=== PATIENT | male | born 1960 | race Caucasian/White ===

== ENCOUNTER → 2022-08-21 | Outpatient (CLI) | payer OTHER, MEDICARE, SELFPAY ==
[2022-08-21 16:14] LABS: Absolute Lymphocyte Count 1.72 X10^3/uL (0.83-4.51); Absolute Neutrophil Count 3.5 X10^3/uL (2.0-7.7); Basophil# 0.03 X10^3/uL; Basophil% 0.5 % (0-1); Eosinophil# 0.13 X10^3/uL; Eosinophils% 2.3 % (0-5); Hematocrit 46.7 % (40-54); Hemoglobin 15.1 g/dL (13.0-16.5); Lymphocyte # 1.72 X10^3/ul (0.83-4.51); Lymphocyte % 30.1 % (19-41); Mean Corp Hgb Conc 32.3 g/dL (32-36); Mean Corpuscular Hgb 31.4 pg (27.0-32.0); Mean Corpuscular Volume 97.1 fL (80-94); Mean Platelet Vol. 9.9 fl (6.2-12.0); Monocyte# 0.32 X10^3/uL; Monocyte% 5.6 % (0-10); NRBC Flagged by Analyzer 0 % (0-5); Neutrophil # 3.49 X10^3/uL (2.7-7.7); Neutrophil % 61.1 % (47-70); Platelet Count 301 K/mm3 (150-450); RBC Distribution Width CV 12.9 % (11.6-14.6); RBC Distribution Width SD 46.4 fl (35.1-43.9); Red Blood Count 4.81 M/mm3 (4.6-6.2); White Blood Count 5.7 K/mm3 (4.4-11.0)
[2022-08-21 16:19] LABS: International Normalized Ratio 1.1; Prothrombin Time (Protime)PT. 13.4 SECONDS (11.7-14.9)
[2022-08-21 16:24] LABS: Erythrocyte Sedimentation Rate 14 mm/hr (0-20)
[2022-08-21 16:55] LABS: ALB/GLOB Ratio 0.9 RATIO (0.9-2.4); AST(SGOT) 25 U/L (15-37); Alanine Aminotransfer ALT/SGPT 38 U/L (16-61); Albumin, Serum 3.6 g/dL (3.2-5.0); Alkaline Phosphatase 137 U/L (45-117); Anion Gap 0 (5-15); BUN 14 mg/dL (7-18); BUN/Creat Ratio 16.6 RATIO (10-20); Bilirubin, Direct 0.23 mg/dL (0.00-0.30); CRP < 2.90 mg/L (0.0-3.0); Calcium,Total 9.5 mg/dL (8.5-10.1); Chloride 109 mmol/L (98-107); Creatinine, Serum 0.84 mg/dL (0.70-1.30); EST Glomerular Filtration Rate 98 mL/min (>60); Est Glom Filt Rate - Afr Amer 119 mL/min (>60); Ferritin 173 ng/mL (26-388); Globulin 4.1 g/dL (2.2-4.2); Glucose 99 mg/dL (74-106); LDH 191 U/L (87-241); Potassium 3.8 mmol/L (3.5-5.1); Protein, Total 7.7 g/dL (6.4-8.2); Sodium Level 137 mmol/L (136-145)
[2022-08-21 17:13] LABS: HIV - WCH Non-Reactive (Nonreactive)
[2022-08-21 17:14] LABS: Hemoglobin A1c 5.2 % (3.8-5.6)
[2022-08-23 14:09] LABS: Anti-Centromere B Ab <0.2 AI (0.0-0.9); Anti-Chromatin <0.2 AI (0.0-0.9); Anti-Jo <0.2 AI (0.0-0.9); Anti-Scleroderma-70 AB <0.2 AI (0.0-0.9); RNP Ab 0.4 AI (0.0-0.9); SJOGREN'S Anti-SS-A test < 0.2 AI (0.0-0.9); SJOGREN'S Anti-SS-B test < 0.2 AI (0.0-0.9); Smith Ab <0.2 AI (0.0-0.9)
[2022-08-23 21:08] LABS: Anti-Mitochondrial AB <20.0 Units (0.0-20.0); Anti-dsDNA Ab <1 IU/mL (0-9)
[2022-08-24 00:06] LABS: Angiotensin Convert Enzyme 38 U/L (14-82); Ceruloplasmin 24.4 mg/dL (16.0-31.0); Cytoplasmic Ab (C-ANCA) <1:20 titer (Neg:<1:20); HEPATITIS B SURFACE AG Negative (Negative); Hep C Antibodies Non Reactive (Non Reactive); Hepatitis A IgM Antibody Negative (Negative); Hepatitis B Core AB IgM Negative (Negative)
[2022-08-24 10:47] LABS: AFP, Tumor Marker < 1.8 ng/mL (0.0-8.4); Anti-Smooth Muscle ABS 10 Units (0-19); Copper, Serum or Plasma 106 ug/dL (69-132); Haptoglobin 128 mg/dL (32-363); Perinuclear Ab (P-ANCA) <1:20 titer (Neg:<1:20)
== END | disposition home or self-care (01) ==
LOC: LAB 15:43
PROVIDERS: PCP Family Medicine; Referring Provider Nurse Practitioner Adult Health; Visit Provider Nurse Practitioner Adult Health
DX: E80.6 Other disorders of bilirubin metabolism (principal); K76.0 Fatty (change of) liver, not elsewhere classified
CPT/HCPCS: 36415; 80053; 80074; 82105; 82140; 82164; 82248; 82390; 82525; 82728; 83010; 83036; 83516; 83615; 85025; 85610; 85652; 86140; 86225; 86235; 86256; 86703

== ENCOUNTER → 2022-08-30 | Outpatient (CLI) | payer OTHER, MEDICARE, SELFPAY ==
--- NOTE | 2022-08-30 07:59 | US_ITS ---
STUDY: ABDOMINAL ULTRASOUND - RIGHT UPPER QUADRANT REASON FOR VISIT: Male, 62 years old fatty liver -- limited TECHNIQUE: Ultrasound evaluation of the right upper quadrant was performed with real-time and static baker-scale imaging. TECHNICAL QUALITY: Adequate. COMPARISON: None. FINDINGS: Liver: The liver measures 16.6 cm. There is increased echogenicity consistent with fatty infiltration. The bile ducts are within normal limits. There is hepatic color flow. The direction of portal flow is hepatopetal. There is no demonstrated mass lesion. Gallbladder: Normal distended gallbladder. The gallbladder wall measures 1.9 mm. There is a negative sonographic Dietrich''s sign. There is no pericholecystic fluid. There are no gallstones. Common Bile Duct (C.B.D.): The common bile duct measures 3.9 mm. Pancreas: Normal size of the head, body and tail of the pancreas. There is increased echogenicity of the pancreas. There is no demonstrated pancreatic mass or cyst. Right Kidney: Normal size of the right kidney. The right kidney measures 10.7 cm x 4.3 cm x 5 cm. Normal renal cortex. The right cortex measures 1.5 cm. There is a 2.2 cm x 2.3 cm by 2.5 cm cyst in the upper pole of the right kidney. There is no right hydronephrosis. US/Abdomen Limited IMPRESSION: Fatty infiltration of the liver. Right renal cyst. Electronically Signed: Bc Betancourt MD at 13:43 EDT ,
--- NOTE | 2022-08-30 07:59 | US_ITS ---
STUDY: ABDOMINAL ULTRASOUND - ELASTOGRAPHY REASON FOR VISIT: Male, 62 years old. Fatty infiltration of the liver. TECHNIQUE: Liver stiffness measurements were obtained on a [employer] RS 85 ultrasound machine using a CA 1-7 probe following the SRU guidelines. 3 measurements were obtained using a 2-D-SWE method. TheIQR/M was 17% suggesting a quality data set. TECHNICAL QUALITY: Adequate. COMPARISON: None. FINDINGS: Liver: Fatty infiltration of the liver. Median liver stiffness measured 8 kPa. Abdomen: There is no demonstrated mass lesion. US/Elastography Parenchyma/Organ IMPRESSION: Liver stiffness measures 8 kPa compatible with F2-F3 (Mild to moderate liver fibrosis) Metavir score. Electronically Signed: Bc Betancourt MD at 13:44 EDT ,
== END | disposition home or self-care (01) ==
LOC: US 07:56
PROVIDERS: PCP Family Medicine; Visit Provider Nurse Practitioner Adult Health
DX: K76.0 Fatty (change of) liver, not elsewhere classified (principal); E80.6 Other disorders of bilirubin metabolism
CPT/HCPCS: 76705; 76981

== ENCOUNTER → 2022-10-15 | Outpatient (CLI) | payer OTHER, MEDICARE, SELFPAY ==
[2022-10-15 13:09] LABS: Erythrocyte Sedimentation Rate 5 mm/hr (0-20)
[2022-10-15 13:11] LABS: Absolute Lymphocyte Count 1.75 X10^3/uL (0.83-4.51); Absolute Neutrophil Count 4.4 X10^3/uL (2.0-7.7); Basophil# 0.04 X10^3/uL; Basophil% 0.6 % (0-1); Eosinophil# 0.13 X10^3/uL; Eosinophils% 1.9 % (0-5); Hemoglobin 14.6 g/dL (13.0-16.5); Lymphocyte # 1.75 X10^3/ul (0.83-4.51); Lymphocyte % 25.5 % (19-41); Mean Corp Hgb Conc 32.4 g/dL (32-36); Mean Corpuscular Hgb 31.6 pg (27.0-32.0); Mean Corpuscular Volume 97.4 fL (80-94); Mean Platelet Vol. 10.2 fl (6.2-12.0); Monocyte# 0.55 X10^3/uL; NRBC Flagged by Analyzer 0 % (0-5); Neutrophil # 4.36 X10^3/uL (2.7-7.7); Neutrophil % 63.7 % (47-70); Platelet Count 287 K/mm3 (150-450); RBC Distribution Width CV 13.2 % (11.6-14.6); RBC Distribution Width SD 47.3 fl (35.1-43.9); Red Blood Count 4.62 M/mm3 (4.6-6.2); White Blood Count 6.9 K/mm3 (4.4-11.0)
[2022-10-15 13:15] LABS: ALB/GLOB Ratio 0.9 RATIO (0.9-2.4); AST(SGOT) 38 U/L (15-37); Alanine Aminotransfer ALT/SGPT 37 U/L (16-61); Albumin, Serum 3.7 g/dL (3.2-5.0); Alkaline Phosphatase 147 U/L (45-117); Anion Gap 0 (5-15); BUN 14 mg/dL (7-18); BUN/Creat Ratio 16.3 RATIO (10-20); CRP < 2.90 mg/L (0.0-3.0); Calcium,Total 9.3 mg/dL (8.5-10.1); Chloride 109 mmol/L (98-107); Creatinine, Serum 0.86 mg/dL (0.70-1.30); EST Glomerular Filtration Rate 96 mL/min (>60); Est Glom Filt Rate - Afr Amer 116 mL/min (>60); Ferritin 186 ng/mL (26-388); Globulin 3.9 g/dL (2.2-4.2); Glucose 84 mg/dL (74-106); Iron 120 ug/dL (65-175); Iron Binding Capacity,Total 268 ug/dL (250-450); Lipase 55 U/L (13-75); PERCENT IRON SATURATION 44.8 % (15.0-55.0); Potassium 4.3 mmol/L (3.5-5.1); Protein, Total 7.6 g/dL (6.4-8.2); Sodium Level 138 mmol/L (136-145)
== END | disposition home or self-care (01) ==
LOC: LAB 11:32
PROVIDERS: PCP Family Medicine; Referring Provider Nurse Practitioner Adult Health; Visit Provider Nurse Practitioner Adult Health
DX: R10.13 Epigastric pain (principal); R63.4 Abnormal weight loss
CPT/HCPCS: 36415; 80053; 82728; 83540; 83550; 83690; 85025; 85652; 86140

== ENCOUNTER → 2022-10-23 | Outpatient (CLI) | payer OTHER, MEDICARE, SELFPAY ==
--- NOTE | 2022-10-23 06:43 | CT_ITS ---
STUDY: CT ABDOMEN AND PELVIS WITH CONTRAST REASON FOR EXAM: Male, 62 years old. Abd pain-EPIGASTRIC, unintentional wt loss 30 lbs in 2 mos -- oral and IV..GASTRIC BYPASS AND DELCAMBRE RADIATION DOSAGE (If Supplied By Facility): CTDIvol = ( 16.72 ) mGy, DLP = ( 1312.57 ) mGycm TECHNIQUE: Transaxial images were obtained from the dome of the diaphragm to the symphysis pubis without oral contrast. Oral and amp; IV Readi-CAT and amp; 100mL Isovue-370 was administered. Sagittal and coronal images were reconstructed. Individualized dose optimization techniques were used for this CT. COMPARISON: None. FINDINGS: The visualized lung bases are unremarkable. Coronary artery calcification. There is decreased attenuation of the liver consistent with steatosis. Normal gallbladder and extrahepatic biliary system. Normal spleen. Normal pancreas. Normal bilateral adrenal glands. There is a 2.9 cm cyst in the posterior midportion of the right kidney. A tiny subcentimeter cyst is also seen along the anterior medial aspect of the right kidney. Normal left kidney. There is a small hiatal hernia. The patient is status post gastric bypass surgery. Normal small intestine. Normal colon. The appendix is visualized and appears normal. There is scattered atherosclerotic calcification of the abdominal aorta, without a demonstrated aneurysm. There is an IVC filter in place. Normal retroperitoneum. Normal urinary bladder. There is enlargement of the prostate gland. Normal abdominal wall. There are mild degenerative changes of the visualized lumbar spine. Degenerative changes of the sacroiliac joints bilaterally. CT/Abdomen/Pelvis WITH Contrast IMPRESSION: Fatty infiltration of the liver. Small right renal cyst. Status post gastric bypass surgery. Small hiatal hernia. Electronically Signed: Bc Betancourt MD at 8:46 EDT ,
== END | disposition home or self-care (01) ==
PROVIDERS: PCP Student in an Organized Health Care Education/Training Program; Referring Provider Nurse Practitioner Adult Health; Visit Provider Nurse Practitioner Adult Health
DX: R63.4 Abnormal weight loss (principal); R10.9 Unspecified abdominal pain
CPT/HCPCS: 74177; Q9967

== ENCOUNTER 2022-10-25 08:34 | Day surgery (SDC) | payer OTHER, MEDICARE, SELFPAY ==
[2022-10-25] VITALS (7 sets, daily range): BP systolic 124–138; BP diastolic 81–89; PULSE 69–89; RESP 16; TEMP 36.4–37; O2SAT 94–96; BMI 32.3
[2022-10-25] MEDS: Lactated Ringers 1,000 ML 15 ML IV (09:02)
--- NOTE | 2022-10-25 10:00 | EGD_PTH ---
PATIENT: HOANG GLEZ LOC: [facility] U#:[id number] AGE/SX: 62/M ROOM: RE10/25/[address]: Dr. Alfredo Keane DO : 1960 BED: DIS: 10/25/2022 SPEC #: [id number] RECD: 10/25/22 13:19 STATUS: BARBIE HARLEY #: [id number] LEVI: 10/25/22 10:[address]: Alfredo Keane DEPT: SURGICAL PATHOLOGY RECD BY: Brady Carrillo ENTERED: 10/25/22 13:54 SP TYPE: EGD BIOPSY DEBI DR: Dr. Quang Kline DO Tissues: A - Esophagus, NOS B - Gastric mucous membrane Procedures: Surgery Specimen Level IV HEADER OPERATION: EGD ([facility]) with biopsies PRE-OP DIAGNOSIS: Unintentional weight loss, epigastric pain TISSUE SUBMITTED: A ? Distal esophagus biopsy, B ? Anastomosis biopsy MICROSCOPIC DIAGNOSIS A. Distal esophagus, biopsy: A fragment of gastric mucosa with moderate acute and chronic inflammation. Intestinal metaplasia (goblet cell metaplasia) not identified. B. Anastomosis, biopsy: Fragments of gastroduodenal mucosa with chronic inflammation. See comment. SHANICE:fermin 10/26/2022 COMMENT A. Alcian blue/PAS stain with matched control is used in the evaluation of the specimen. B. Immunohistochemistry for Helicobacter pylori can be performed if clinically indicated. Please notify the Laboratory if it is needed. MICROSCOPIC DESCRIPTION Slides are reviewed. GROSS DESCRIPTION A - Received in fixative is one container labeled with the patient's name and designated distal esophagus biopsy. The specimen consists of one irregular fragment of light marin soft tissue that measures 0.3 x 0.3 x 0.1 cm. The specimen is totally submitted in one cassette. B - Received in fixative is one container labeled with the patient's name and designated anastomosis biopsy. The specimen consists of multiple irregular fragments of light marin soft tissue that in aggregate measure 1.0 x 0.3 x 0.1 cm. The specimen is totally submitted in one cassette. / SJ:fermin 10/25/2022 TC:2 CPT: 99067 x2, 54784
--- NOTE | 2022-10-25 10:06 | PCM.HP.BLA ---
History and Physical Date of Admission: 10/25/22 2 M who presents to the office today for f/u fatty liver. He was referred for elevated bilirubin and fatty liver. His biochemical eval for liver disease was very good on the whole, repeat bilirubin was normal, alk phos was slightly elevated at 137. His liver elastography revealed mild liver stiffness of 8 kpa. We are treating with ursodiol 250 mg bid, started in early September 2022. At his initial visit in 08/2022 we discussed possible esophagram or EGD to eval dysphagia but he preferred to focus on liver initially. Today he reports sharp epigastric pain, started in 08/2022 after his initial visit with us, takes my breath away, occurs mainly when he eats but can be other times too such as when he feels hungry, has woken him up in the night, doesn't radiate, occurs multiple times a day, lasts 20 minutes. No nausea or vomiting. No dysphagia. Poor appetite began last year. Unintentional weight loss 29 lbs in past 2 mos. Has a little more energy than he used to; he had c/o decreased energy since Fall 2021. Used to have a good BM every morning. Noted constipation since starting Xarelto 3 mos ago. Now having BM every 3 days, starts as formed stool but then becomes diarrhea, then fine the rest of the day. No melena or hematochezia. Having heartburn about 2x per week. 06/22/22 RUQ US: coarsened echotexture of the liver parenchyma which may reflect fatty infiltration or other diffuse hepatocellular process Brenden en Y gastric bypass in 2005 at [facility]. No EGD since gastric bypass. Nonsmoker. Occas beer, only in summer. Takes celebrex. Takes acetaminophen daily. ROS Const Constitutional: Positive for fatigue, headache(s) and weight change ENT ENT: Positive for headache(s); No difficulty swallowing Cardio Cardiology: Positive for leg pain with exertion Gastro GI: Positive for abdominal pain, bloating, change in bowel habits, constipation, diarrhea, heartburn, excessive flatus and nausea/dyspepsia; No belching, change in stool character, coffee ground emesis, cramping, difficulty swallowing, feeling full early, incontinent of stools, Vomiting blood/hematemesis, Blood in stool, loose stools, Black,tarry stools, pain with swallowing, vomiting or other Musc Musculoskeletal: Positive for joint pain, back pain, muscle cramps, muscle weakness, numbness, stiffness, tingling, Arthritis, restless legs, leg pain at night and leg pain with exertion Skin Skin: No yellowing of the eye or itchy eyes Neuro Neurology: Positive for headache(s), numbness, tingling and restless legs Psych Psychiatric: Positive for anxiety and No depression Endo Endocrine: Positive for fatigue and weight change Aller/Imm Allergy/Immunologic: No itchy eyes Fernandez/Lymp Hematologic/Lymphatic: Positive for easy bruising; No easy bleeding Exam Const General: cooperative and comfortable Orientation: alert, awake and oriented x3 HENMT Head: normal to inspection Eyes Sclera: sclerae normal Resp Effort & Inspection: normal respiratory effort GI Inspection: normal to inspection Palpation: soft, no hepatosplenomegaly, no masses and tender in the epigastrum and in the RUQ Skin General: no rashes or lesions noted Neuro Gait: normal gait Psych Mood: congruent mood Quality Reporting Tobacco Screening ([facility]) Smoking Status: Former smoker Assessment and Plan Assessment and Plan (1) Unintentional weight loss: ?Status:?Acute ?Plan: 62 yr old male with epigastric pain x 2 mos, associated with almost 30 lb unintentional weight loss. Will get labs today, may need f/u labs based on results. Will schedule EGD. Will order CT abd pel w/ oral and IV contrast. Hx Brenden en Y gastric bypass. Takes celebrex daily, is on Xarelto for chronic DVT. DDx includes PUD, gastritis/jejunitis, malignancy. Start pantoprazole 40 mg qam. Hold ursodiol. Add miralax for constipation. (2) Epigastric pain: ?Status:?Acute ?Plan: as above ? ? ? Orders: Orders Comprehensive Metabolic Profil Today R10.13 - Epigastric pain, R63.4 - Abnormal weight loss ? CRP Today R10.13 - Epigastric pain, R63.4 - Abnormal weight loss ? Ferritin Today R10.13 - Epigastric pain, R63.4 - Abnormal weight loss ? Iron+Iron Binding Capacity Today R10.13 - Epigastric pain, R63.4 - Abnormal weight loss ? Lipase Today R10.13 - Epigastric pain, R63.4 - Abnormal weight loss ? CBC W/Diff, Automated Today R10.13 - Epigastric pain, R63.4 - Abnormal weight loss ? Erythrocyte Sed Rate Today R10.13 - Epigastric pain, R63.4 - Abnormal weight loss ? Abdomen/Pelvis WITH Contrast Today R63.4 - Abnormal weight loss ? Medications: New pantoprazole 40 mg? PO QAM 90 tabs 1RF ? ? On Hold ursodiol ?? Hold Comment:? None 250 mg? PO BID 180 tabs 3RF ? ? I have examined the patient and the H&P has been reviewed. There are no clinical changes since date of exam.
--- NOTE | 2022-10-25 10:31 | OP.CCLET_ITS ---
10/25/2022 Nick Gaffney Re : Upper GI endoscopy procedure for Leobardo Rowleyr Yeimy This procedure was performed on October. My impressions and recommendations are as follows: Impressions : - Tortuous esophagus. - Z-line irregular, 40 cm from the incisors. Biopsied. - Medium-sized hiatal hernia. - Brenden-en-Y gastrojejunostomy with gastrojejunal anastomosis characterized by edema, erosion and erythema. - Normal examined jejunum. Recommendations : - Discharge patient to home. - Resume previous diet. - Continue present medications. - Await pathology results. - Use misoprostol 100 micrograms PO QID for 4 weeks. My findings are described in the full procedure note, which is enclosed. If I can be of further assistance, please feel free to contact me at . Sincerely, Alfredo Keane, 10/25/2022 10:31:23 AM This report has been signed electronically.
--- NOTE | 2022-10-25 10:31 | OP.EGD_ITS ---
Patient Name: Leobardo Andrea Procedure Date: 10/25/2022 10:11 AM Date of : 1960 Age: 62 Procedure: Upper GI endoscopy Indications: Epigastric abdominal pain, Dysphagia Providers: Alfredo Keane DO Medicines: Monitored Anesthesia Care Patient Profile: This is a 62 year old male. Refer to note in patient chart for documentation of history and physical. Patient has symptoms of chronic epigastric abdominal pain and chronic dysphagia. Complications: No immediate complications. Procedure: Pre-Anesthesia Assessment: - Prior to the procedure, a History and Physical was performed, and patient medications and allergies were reviewed. The patient is competent. The risks and benefits of the procedure and the sedation options and risks were discussed with the patient. All questions were answered and informed consent was obtained. Patient identification and proposed procedure were verified by the physician. Mental Status Examination: alert and oriented. Airway Examination: normal oropharyngeal airway and neck mobility. Respiratory Examination: clear to auscultation. CV Examination: normal. Prophylactic Antibiotics: The patient does not require prophylactic antibiotics. Prior Anticoagulants: The patient has taken no previous anticoagulant or antiplatelet agents. ASA Grade Assessment: II - A patient with mild systemic disease. After reviewing the risks and benefits, the patient was deemed in satisfactory condition to undergo the procedure. The anesthesia plan was to use monitored anesthesia care (MAC). Immediately prior to administration of medications, the patient was re-assessed for adequacy to receive sedatives. The heart rate, respiratory rate, oxygen saturations, blood pressure, adequacy of pulmonary ventilation, and response to care were monitored throughout the procedure. The physical status of the patient was re-assessed after the procedure. After obtaining informed consent, the endoscope was passed under direct vision. Throughout the procedure, the patient's blood pressure, pulse, and oxygen saturations were monitored continuously. The gastroscope was introduced through the mouth, and advanced to the jejunum. The upper GI endoscopy was accomplished without difficulty. The patient tolerated the procedure well. Scope In: 10:17:15 AM Scope Out: 10:20:30 AM Total Procedure Duration Time 0 hours 3 minutes 15 seconds Findings: The examined esophagus was significantly tortuous. The Z-line was irregular and was found 40 cm from the incisors. Biopsies were taken with a cold forceps for histology. Verification of patient identification for the specimen was done. Estimated blood loss was minimal. A medium-sized hiatal hernia was present. Evidence of a Brenden-en-Y gastrojejunostomy was found. The gastrojejunal anastomosis was characterized by edema, erosion and erythema. This was traversed. The ijnts-bk-govqpcg limb was characterized by healthy appearing mucosa. The jejunojejunal anastomosis was characterized by healthy appearing mucosa. The aiytkdvv-xk-nouzbtc limb was not examined as it could not be found. The examined jejunum was normal. Impression: - Tortuous esophagus. - Z-line irregular, 40 cm from the incisors. Biopsied. - Medium-sized hiatal hernia. - Brenden-en-Y gastrojejunostomy with gastrojejunal anastomosis characterized by edema, erosion and erythema. - Normal examined jejunum. Recommendation: - Discharge patient to home. - Resume previous diet. - Continue present medications. - Await pathology results. - Use misoprostol 100 micrograms PO QID for 4 weeks. Procedure Code(s): --- Professional --- 92723, Esophagogastroduodenoscopy, flexible, transoral; with biopsy, single or multiple CPT copyright 2017 [employer]. All rights reserved. The codes documented in this report are preliminary and upon sustainable agriculture specialist review may be revised to meet current compliance requirements. Alfredo Keane DO 10/25/2022 10:31:23 AM This report has been signed electronically. Number of Addenda: 0 Note Initiated On: 10/25/2022 10:11 AM
== END 2022-10-25 11:17 | disposition home or self-care (01) ==
LOC: EN 08:35 → AC 08:37
PROVIDERS: PCP Student in an Organized Health Care Education/Training Program; Referring Provider Student in an Organized Health Care Education/Training Program; Visit Provider Internal Medicine Gastroenterology
PROC: 0DJ08ZZ Inspection of Upper Intestinal Tract, Via Natural or Artificial Opening Endoscopic (ICD-10-PCS; CPT 43235; principal; 2022-10-25 09:55)
DX: K20.90 Esophagitis, unspecified without bleeding (principal); I82.509 Chronic embolism and thrombosis of unspecified deep veins of unspecified lower extremity; K44.9 Diaphragmatic hernia without obstruction or gangrene; Z87.891 Personal history of nicotine dependence; Z79.01 Long term (current) use of anticoagulants
CPT/HCPCS: 43239; 88305; J7120; J2405

== ENCOUNTER 2022-11-15 07:15 | Day surgery (SDC) | payer OTHER, MEDICARE, SELFPAY ==
[2022-11-15 07:41] VITALS: BP 135/81; PULSE 75; RESP 18; TEMP 36.3; O2SAT 99
[2022-11-15] MEDS: Lidocaine Jelly 2% 20 ML Syringe (URO-JET) 1 APPLIC (07:45)
== END 2022-11-15 23:59 | disposition home or self-care (01) ==
PROVIDERS: PCP Student in an Organized Health Care Education/Training Program; Referring Provider Student in an Organized Health Care Education/Training Program; Visit Provider Internal Medicine Gastroenterology
PROC: F00ZJWZ Instrumental Swallowing and Oral Function Assessment using Swallowing Equipment (ICD-10-PCS; CPT 43235; principal; 2022-11-15 07:40)
DX: K22.4 Dyskinesia of esophagus (principal)
CPT/HCPCS: 91010

== ENCOUNTER 2023-09-11 11:42 | Emergency (ER) | payer OTHER, MEDICARE, SELFPAY ==
[2023-09-11] VITALS (7 sets, daily range): BP systolic 131–162; BP diastolic 70–103; PULSE 74–90; RESP 16–23; TEMP 36.4–36.8; O2SAT 95–99; BMI 32.1
--- NOTE | 2023-09-11 12:45 | RAD_ITS ---
STUDY: X-RAY - LEFT ELBOW REASON FOR EXAM: Male, 63 years old. Elbow pain following a fall. TECHNIQUE: 4 view(s) of the elbow. COMPARISON: None. FINDINGS: Comminuted fracture involving the distal metaphysis of the left humerus extending into the medial epicondyle and the joint space. There is evidence of anterior displacement of the fracture fragment. There is degenerative arthrosis of the radiocapitellar and ulnotrochlear articulations. Joint effusion. Soft tissue swelling. RAD/Elbow min 3 Views IMPRESSION: Condylar fracture of the distal humerus extending to the articular surface with soft tissue swelling and joint effusion. Electronically Signed: Bc Betancourt MD at 14:30 EDT ,
--- NOTE | 2023-09-11 12:45 | RAD_ITS ---
STUDY: X-RAY - LEFT SHOULDER REASON FOR EXAM: Male, 63 years old. History of fall. TECHNIQUE: 2 view(s) of the shoulder. COMPARISON: None. FINDINGS: There is moderate degenerative arthrosis of the glenohumeral articulation. There is degenerative arthrosis of the acromioclavicular joint without inferior osseous spur formation. Normal acromion. Normal humeral head and visualized proximal humerus. The soft tissue structures are unremarkable. Normal visualized pulmonary apex. RAD/Shoulder min 2 Views IMPRESSION: Degenerative changes. No fracture or dislocation is seen. Electronically Signed: Bc Betancourt MD at 14:32 EDT ,
--- NOTE | 2023-09-11 12:45 | RAD_ITS ---
STUDY: X-RAY CHEST REASON FOR EXAM: Male, 63 years old. Sob . History of fall. TECHNIQUE: Single AP portable view of the chest. COMPARISON: None. FINDINGS: EKG electrodes are seen. The lungs are clear and expanded. There is no demonstrated pleural abnormality. Normal size heart. Normal mediastinum and weston. Normal visualized pulmonary arteries. There is atherosclerotic tortuosity of the aortic arch and descending thoracic aorta. There are diffuse degenerative changes of the visualized thoracic spine. Normal visualized ribs, clavicles, and shoulders. Small hiatal hernia. RAD/Chest 1 View (Portable) IMPRESSION: No acute abnormality is seen. The lungs are clear. Electronically Signed: Bc Betancourt MD at 14:31 EDT ,
--- NOTE | 2023-09-11 12:46 | EKG12_ITS ---
Test Reason : FALL Blood Pressure : / mmHG Vent. Rate : 084 BPM Atrial Rate : 084 BPM P-R Int : 136 ms QRS Dur : 090 ms QT Int : 364 ms P-R-T Axes : 015 -14 026 degrees QTc Int : 430 ms Normal sinus rhythm Normal ECG Confirmed by RENARD CAVANAUGH, WOODROW ([id number]), health editor BRIANNA TRIANA ([id number]) on 09/12/2023 11:40:39 AM Referred By: Confirmed By:WOODROW GLYNN MD
[2023-09-11] MEDS: Morphine 4 MG/ML Syringe IV (13:37)
[2023-09-11] MEDS: Ondansetron 4 MG/2 ML Vial IV (13:37)
--- NOTE | 2023-09-11 13:52 | CT_ITS ---
STUDY: CT CERVICAL SPINE WITHOUT CONTRAST REASON FOR EXAM: Male, 63 years old. Neck pain following a fall. RADIATION DOSAGE (If Supplied By Facility): CTDIvol = ( 24.99 ) mGy, DLP = ( 550.87 ) mGycm TECHNIQUE: High resolution transaxial imaging was performed without contrast material. Sagittal and coronal images were reconstructed. Individualized dose optimization techniques were used for this CT. COMPARISON: None FINDINGS: Normal craniovertebral junction. There are degenerative changes of the anterior atlantoaxial articulation. Normal odontoid process. Normal cervical lordosis. Normal vertebral bodies and posterior osseous elements. C2-3: Normal endplates. Normal disc height and morphology. Normal central canal and intervertebral neuroforamina. C3-4: Normal endplates. Normal disc height and morphology. Normal central canal and intervertebral neuroforamina. C4-5: Normal endplates. Normal disc height and morphology. Normal central canal and intervertebral neuroforamina. C5-6: Mild degree of disc space narrowing and spondylosis. Mild uncovertebral arthrosis. Mild right neural foraminal stenosis. C6-7: Mild degree of disc space narrowing. No foraminal stenosis is seen. C7-T1: Normal endplates. Normal disc height and morphology. Normal central canal and intervertebral neuroforamina. Atherosclerotic calcific plaque in the right brachiocephalic artery. CT/Spine Cervical without Contras IMPRESSION: Multilevel degenerative changes, as described above. Electronically Signed: Bc Betancourt MD at 14:17 EDT ,
--- NOTE | 2023-09-11 13:52 | CT_ITS ---
STUDY: CT BRAIN WITHOUT CONTRAST REASON FOR EXAM: Male, 63 years old. Head injury due to a fall. RADIATION DOSAGE (If Supplied By Facility): CTDIvol = ( 44.99 ) mGy, DLP = ( 897.35 ) mGycm TECHNIQUE: Transaxial CT imaging of the brain was performed without administration of intravenous contrast material. Individualized dose optimization techniques were used for this CT. COMPARISON: No relevant priors. FINDINGS: Normal soft tissue structures. Normal calvarium. Normal size ventricles and extra-axial spaces for the patient''s age. Normal white matter tracts of the cerebral hemispheres. Normal basal ganglia and thalami. Normal brainstem. Normal cerebellum. There is no intracranial hemorrhage. There are no findings of an acute ischemic infarction. Small polyp or retention cyst at the base of the right maxillary sinus. 1 cm polyp or retention cyst along the lateral wall of the left maxillary sinus. CT/Brain/Head without Contrast IMPRESSION: Normal unenhanced CT scan of the brain. Electronically Signed: Bc Betancourt MD at 14:15 EDT ,
[2023-09-11 14:06] LABS: Absolute Lymphocyte Count 1.32 X10^3/uL (0.83-4.51); Absolute Neutrophil Count 4.7 X10^3/uL (2.0-7.7); Basophil# 0.03 X10^3/uL; Basophil% 0.5 % (0-1); Eosinophil# 0.13 X10^3/uL; Hematocrit 43.5 % (40-54); Hemoglobin 14.2 g/dL (13.0-16.5); Lymphocyte # 1.32 X10^3/ul (0.83-4.51); Lymphocyte % 20.2 % (19-41); Mean Corp Hgb Conc 32.6 g/dL (32-36); Mean Corpuscular Hgb 30.9 pg (27.0-32.0); Mean Corpuscular Volume 94.8 fL (80-94); Mean Platelet Vol. 9.9 fl (6.2-12.0); Monocyte# 0.35 X10^3/uL; Monocyte% 5.4 % (0-10); NRBC Flagged by Analyzer 0 % (0-5); Neutrophil # 4.66 X10^3/uL (2.7-7.7); Neutrophil % 71.1 % (47-70); Platelet Count 297 K/mm3 (150-450); RBC Distribution Width CV 13.1 % (11.6-14.6); RBC Distribution Width SD 45.7 fl (35.1-43.9); Red Blood Count 4.59 M/mm3 (4.6-6.2); White Blood Count 6.5 K/mm3 (4.4-11.0)
[2023-09-11 14:08] LABS: Anion Gap 2 (5-15); BUN 17 mg/dL (7-18); Calcium,Total 9.5 mg/dL (8.5-10.1); Chloride 108 mmol/L (98-107); Creatinine, Serum 0.81 mg/dL (0.70-1.30); EST Glomerular Filtration Rate 102 mL/min (>60); Est Glom Filt Rate - Afr Amer 124 mL/min (>60); Estimated Creatinine Clearance 120.02 ml/min; Glucose 111 mg/dL (74-106); Potassium 3.7 mmol/L (3.5-5.1); Sodium Level 139 mmol/L (136-145); Troponin-I HS 6 pg/mL (3.0-78.0)
--- NOTE | 2023-09-11 15:17 | RAD_ITS ---
STUDY: X-RAY - RIGHT TIBIA AND FIBULA REASON FOR EXAM: Male, 63 years old. Anterior proximal tibial pain following a fall. TECHNIQUE: 4 view(s) of the tibia and fibula were obtained. COMPARISON: None. FINDINGS: Normal visualized tibia. Normal visualized fibula. Calcaneal spurs. Vascular calcification. RAD/Tibia & Fibula 2 Views IMPRESSION: No fracture is seen. Calcaneal spurs and vascular calcification. Electronically Signed: Bc Betancourt MD at 16:01 EDT ,
--- NOTE | 2023-09-11 15:17 | RAD_ITS ---
STUDY: X-RAY - PELVIS REASON FOR EXAM: Male, 63 years old. Pain following a fall. TECHNIQUE: One view of the pelvis was obtained. COMPARISON: None. FINDINGS: There is a non-specific bowel gas pattern. Normal visualized soft tissue structures. There is narrowing with cortical sclerosis and osteophyte formation of the sacroiliac joint consistent with degenerative osteoarthritic changes. Normal visualized bilateral superior and inferior pubic rami. Normal pubic symphysis. Normal ischial tuberosities. Normal visualized right femoral head. Normal right acetabulum. There is mild articular joint space narrowing of the right hip. Normal visualized left femoral head. Normal left acetabulum. There is mild articular joint space narrowing of the left hip. RAD/Pelvis 1 or 2 Views IMPRESSION: Mild degree of degenerative changes of the hip joints as well as the sacroiliac joints. No fracture is seen. Electronically Signed: Bc Betancourt MD at 16:02 EDT ,
[2023-09-11] MEDS: HYDROmorphone 1 MG/ML Syringe IV ×2 (15:27→18:57)
[2023-09-11 16:29] LABS: Bacteria 0 SEEN /hpf (None Seen); Color, Urine Yellow (Yellow); Glucose, Dipstick Normal (Normal); Ketone-Dipstick 50 mg/dl (Negative); Leukocyte Esterase-Dipstick 25 /ul (Negative); Mucous, Urine 0 SEEN /hpf (<or=2+); Nitrite-Dipstick Negative (Negative); Occult Blood-Urine Negative /ul (Negative); Protein-Dipstick Negative (Negative); Red Blood Cells-Urine 0 SEEN /hpf (0-5); Squamous Epithelial Cells - UA 0 SEEN /hpf (0-5); Urine Clarity Clear (Clear); Urine Urobilinogen 1 mg/dl (Normal); White Blood Cells 0 SEEN /hpf (0-5)
[2023-09-11 16:36] LABS: Urine Bilirubin Dipstick 1 mg/dL (Negative)
--- NOTE | 2023-09-11 16:44 | ED.VIS.FALL ---
HPI HPI - Fall History of Present Illness Chief Complaint: Fall Informant: patient Occured/Mechanism Occurred: Today Narrative Narrative: 63-year-old male presenting after fall. Patient was on a ladder approximately 2 steps up when he had a syncopal episode. He does not recall anything except waking up on the ground. He hit his head. He is on Xarelto. He denies any symptoms before the episode. Denies chest pain or lightheadedness. Complains of severe pain left elbow and left shoulder. He also complains of right lower extremity pain. He is on Xarelto for history of DVT. Prior similar symptoms: No PFSH PFSH Medical History Abnormal iron saturation Arthritis Back pain Bone pain Chronic deep vein thrombosis Depression DVT (deep venous thrombosis) Easy bruising Elevated PSA Excessive bleeding Fatigue Former smoker Luke filter in place History of edema HLD (hyperlipidemia) Hyperbilirubinemia IBS (irritable bowel syndrome) Leg cramps Migraine headache Muscle cramping NAFLD (nonalcoholic fatty liver disease) Other disorders of bilirubin metabolism Wears glasses Home Medications Ropinirole Hcl [Requip] 1 mg PO TID PRN PRN Sleep 02/02/16 [History Last Taken Unknown] cyclobenzaprine 10 mg tablet 10 mg PO TID 02/02/16 [History Last Taken Unknown] gabapentin 800 mg tablet 800 mg PO QHS 02/02/16 [History Last Taken Unknown] celecoxib 200 mg capsule 200 mg PO DAILY 07/12/22 [History Last Taken Unknown] rivaroxaban 20 mg tablet 20 mg PO DAILY 07/12/22 [History Last Taken 10/23/22] prenat.vits,kathrine,usw-egru-waiex 1 tab PO DAILY 08/21/22 [History Last Taken Unknown] ursodiol 250 mg tablet 250 mg PO BID #180 tabs 09/12/22 [Rx Last Taken Unknown] acetaminophen 500 mg capsule 1,000 mg PO DAILY 10/23/22 [History Last Taken Unknown] calcium carbonate 500 mg-vitamin D3 3.125 mcg (125 unit) tablet 2 tab PO DAILY 10/23/22 [History Last Taken Unknown] misoprostol 100 mcg tablet 100 mcg PO BID 3 months #180 tabs 04/02/23 [Rx Last Taken Unknown] nortriptyline 25 mg capsule 25 mg PO QHS 90 days #90 caps 04/02/23 [Rx Last Taken Unknown] pantoprazole 40 mg tablet,delayed release 40 mg PO QAM #90 tabs 04/02/23 [Rx Last Taken Unknown] Allergy/AdvReac Type Severity Reaction Status Date / Time latex Allergy Hives Verified 09/11/23 11:44 hydrocodone [From Vicodin] AdvReac Hives Verified 09/11/23 11:44 Family History Father Abdominal aortic aneurysm Arrhythmia Brother CAD (coronary artery disease) Mother COPD (chronic obstructive pulmonary disease) Surgical History History of Brenden-en-Y gastric bypass Social History Smoking Status: Former smoker quit date: 02/02/16 alcohol intake: current alcohol intake frequency: a few times a month ROS ROS ED Constitutional Constitutional ED: Denies fever(s) Eyes Eyes: Denies change in vision ENT ENT ED: Denies rhinorrhea or sore throat Cardiovascular Cardiovascular: Denies chest pain or palpitations Respiratory/Chest Respiratory/Chest: Denies cough or dyspnea Gastrointestinal Gastrointestinal: Denies abdominal pain, diarrhea, nausea or vomiting Genitourinary Genitourinary ED: Denies dysuria Musculoskeletal Musculoskeletal: Reports other Details: Left elbow, left shoulder, right lower extremity pain ; Denies neck pain Integumentary Denies rash Neurologic Neurologic: Denies headache(s) Psychiatric Psychiatric: Denies suicidal thoughts EXAM Physical Exam Const Vital Signs: 09/11/23 11:42 09/11/23 13:00 09/11/23 13:44 Temperature 98.2 F Temperature Source Temporal Pulse Rate 89 74 Respiratory Rate 16 18 Respiratory Effort Normal Non-Labored Respiratory Depth Normal Respiratory Pattern Normal Blood Pressure 149/98 H 131/94 H Blood Pressure Mean 115 106 Pulse Ox 99 99 Oxygen Delivery Method Room Air Room Air Room Air 09/11/23 15:00 Temperature Temperature Source Pulse Rate 84 Respiratory Rate 19 H Respiratory Effort Respiratory Depth Respiratory Pattern Blood Pressure 162/103 H Blood Pressure Mean 122 Pulse Ox 98 Oxygen Delivery Method Room Air Positive well nourished and well developed Constitutional Narrative: GCS 15 General Appearance ED: well developed HEENT Reports normocephalic atraumatic Eyes PERRL and EOMs intact bilaterally Neck supple Neck Narrative: No midline cervical spine tenderness General: Negative for tenderness Chest Wall inspection of chest normal Resp normal respiratory effort and clear to auscultation bilaterally Cardio regular rate and regular rhythm GI non-tender and non-distended Palpation: soft; Negative for guarding or rebound tenderness present no CVA tenderness Extremity Extremity Narrative: Diffuse tenderness left elbow and left shoulder. Normal distal pulses. Diffuse tenderness right tib-fib, normal distal pulses. Neuro oriented x3 Sensorium / Orientation: alert Psych mental status grossly normal MDM MDM MDM Narrative Medical decision making narrative: 63 male presents after fall from ladder. Differential diagnosis includes contusion, fracture, head injury, syncope. He is on Xarelto for history of DVT. CT head and cervical spine obtained. X-rays left shoulder, left elbow, right tib-fib, chest, pelvis obtained and read by myself and radiology. EKG is sinus rhythm with no acute ischemic changes, rate 84. Patient was given morphine, Zofran. He continued with pain and was given Dilaudid. CBC, chemistries unremarkable. Troponin negative. Ortho-Glass splint was applied for transfer. We currently have no orthopedics available and patient will require admission for syncopal episode. Patient and family agreeable with transfer. Discussed with [facility] for transfer. History & Record Review Discussion w/independent historian: Patient and Family Additional record(s) reviewed:: Prior labs Lab Data Attestation: I reviewed the patient's lab results. Labs: Laboratory Results - last 24 hr 09/11/23 09/11/23 13:30 16:18 WBC 6.5 RBC 4.59 L Hgb 14.2 Hct 43.5 MCV 94.8 H MCH 30.9 MCHC 32.6 RDW Std Deviation 45.7 H RDW Coeff of Susan 13.1 Plt Count 297 MPV 9.9 Immature Gran % (Auto) 0.800 Neut % (Auto) 71.1 H Lymph % (Auto) 20.2 [place] % (Auto) 5.4 Eos % (Auto) 2.0 Baso % (Auto) 0.5 Absolute Neuts (auto) 4.7 Absolute Lymphs (auto) 1.32 Nucleated RBC % 0 Sodium 139 Potassium 3.7 Chloride 108 H Carbon Dioxide 29.0 Anion Gap 2 L BUN 17 Creatinine 0.81 Estim Creat Clear Calc 120.02 Est GFR (MDRD) Af Amer 124 Est GFR (MDRD) Non-Af 102 BUN/Creatinine Ratio 21.0 H Glucose 111 H Calcium 9.5 Troponin I High Sens 6 Urine Color Yellow Urine Clarity Clear Urine pH 7.0 Ur Specific [place] 1.010 Urine Protein Negative Urine Glucose (UA) Normal Urine Ketones 50 H Urine Occult Blood Negative Urine Nitrite Negative Urine Bilirubin 1 H Urine Urobilinogen 1 H Ur Leukocyte Esterase 25 H Radiography Diagnostic Testing: Clinical Impression(s) from Imaging Studies Chest X-Ray 09/11/23 12:45 IMPRESSION: No acute abnormality is seen. The lungs are clear. Electronically Signed: Bc Betancourt MD at 14:31 EDT , Elbow X-Ray 09/11/23 12:45 IMPRESSION: Condylar fracture of the distal humerus extending to the articular surface with soft tissue swelling and joint effusion. Electronically Signed: Bc Betancourt MD at 14:30 EDT , Shoulder X-Ray 09/11/23 12:45 IMPRESSION: Degenerative changes. No fracture or dislocation is seen. Electronically Signed: Bc Betancourt MD at 14:32 EDT , Brain CT 09/11/23 13:52 IMPRESSION: Normal unenhanced CT scan of the brain. Electronically Signed: Bc Betancourt MD at 14:15 EDT , Cervical Spine CT 09/11/23 13:52 IMPRESSION: Multilevel degenerative changes, as described above. Electronically Signed: Bc Betancourt MD at 14:17 EDT , Pelvis X-Ray 09/11/23 15:17 IMPRESSION: Mild degree of degenerative changes of the hip joints as well as the sacroiliac joints. No fracture is seen. Electronically Signed: Bc Betancourt MD at 16:02 EDT , Tibia/Fibula X-Ray 09/11/23 15:17 IMPRESSION: No fracture is seen. Calcaneal spurs and vascular calcification. Electronically Signed: Bc Betancourt MD at 16:01 EDT , EKG Initial EKG: Attestation: I personally reviewed and interpreted this EKG as follows: Interpretation: Sinus Rhythm Discharge Plan Triage Chief Complaint: Fall ED Provider: Kallie Dawson Dx/Rx/DC Orders Clinical Impression: Closed head injury, Closed fracture of left elbow, Syncope, Fall Prescriptions: No Action celecoxib 200 mg capsule 200 mg PO DAILY rivaroxaban 20 mg tablet 20 mg PO DAILY Rx Instructions: must administer with evening meal prenat.vits,kathrine,nsk-chwn-iufdf Tablet 1 tab PO DAILY misoprostol 100 mcg tablet 100 mcg PO BID 90 Days Qty: 180 3RF nortriptyline 25 mg capsule 25 mg PO QHS 90 Days Qty: 90 3RF pantoprazole 40 mg tablet,delayed release (DR/EC) 40 mg PO QAM Qty: 90 3RF gabapentin 800 MG tablet 800 mg PO QHS Ropinirole Hcl [Requip] 1 MG tablet 1 mg PO TID PRN PRN (Reason: Sleep) cyclobenzaprine 10 MG tablet 10 mg PO TID acetaminophen 500 mg Capsule 1,000 mg PO DAILY calcium carbonate-vitamin D3 [Calcium 500 + D (D3)] 500 mg-3.125 mcg (125 unit) Tablet 2 tab PO DAILY ursodiol 250 mg tablet 250 mg PO BID Qty: 180 3RF Hold Instructions: Home Medication placed on hold at Doctor's office Primary Care Provider: Quang Kline Referrals: Quang Kline DO [Primary Care Provider] - Disposition Disposition: Acute Care Hospital Discharge Location: [facility]
== END 2023-09-11 21:38 | disposition short-term general hospital (02) ==
PROVIDERS: Emergency Provider Emergency Medicine; PCP Student in an Organized Health Care Education/Training Program; Visit Provider Emergency Medicine
DX: S42.352A Displaced comminuted fracture of shaft of humerus, left arm, initial encounter for closed fracture (principal); S09.90XA Unspecified injury of head, initial encounter; R55 Syncope and collapse; W11.XXXA Fall on and from ladder, initial encounter; Z79.01 Long term (current) use of anticoagulants; Z79.899 Other long term (current) drug therapy; Z87.891 Personal history of nicotine dependence; Z86.718 Personal history of other venous thrombosis and embolism
CPT/HCPCS: 70450; 71045; 72125; 72170; 73030; 73080; 73590; 80048; 81001; 84484; 85025; 93005; 96374; 96375; 96376; 99285; A4216; J2405

== ENCOUNTER 2023-10-10 05:44 | Day surgery (SDC) | payer OTHER, MEDICARE, SELFPAY ==
[2023-10-10] MEDS: Lactated Ringers 1,000 ML 15 ML IV (06:14)
[2023-10-10 06:15] VITALS: BP 157/88; PULSE 65; RESP 16; TEMP 36.7; O2SAT 99; BMI 33.1
--- NOTE | 2023-10-10 06:41 | PCM.HP.BLA ---
History and Physical Date of Admission: 10/10/23 dysphagia Details: HOANG GLEZ, is a 63 M who presents to the office today for follow up. PCP OV 06.28.22 with new diagnosis NAFLD noting pertinent history of obesity s/p gastric bypass 2005, IBS, anemia, DVT.?Biochemical?CBC, iron, ferritin, Vit D25, lipids, PTH without pertinent abnormality?T.Bili H1.5, AST 28-ALT 47-AP H148 FIB4 0.89, TIBC L243, folate H35.86, Vit B12 >2000?[facility] [facility] [facility]coarse echotexture of the liver.? *BGI established 08.21.22 with history as above. Feeling generally unwell with weakness/fatigue since and minor dysphagia. Heartburn has been a problem since Brenden-en-Y in 2005; constipation since starting Xarelto two months prior.?Biochemical?CBC, ESR, haptoglobin, A1c, CMP, ferritin, ammonia, LDH, CRP, ceruloplasmin, PRASHANT, AFP, copper, ANCA, MULUGETA comp, AMA, ASM, hepatitis, HIV without pertinent abnormality.?AST 25-ALT 38-AP H137?US and elastography 08.30.22?hepatic measurement 16.6cm with fatty infiltration stiffness 8kPa; right renal cyst?Start ursodiol? OV 10.15.22 noting unintentional weight loss of 30lbs.?Ursodiol held.?Biochemical?CBC, ESR, CMP, CRP, ferritin, lipase, Iron, TIBC without pertinent abnormality?T.bili H1.4, AST H38-ALT 37-AP H147?CT abd/pel 10.23.22?hepatic steatosis; right renal cyst; small hiatal hernia; s/p gastric bypass.?EGD 10.25.22?esophagus significantly tortuous; irregular Zline 40cm; medium hiatal hernia; Brenden-en-Y with erythema, edema and erosion at anastomosis, chronic inflammation.? Pt reports still feeling fatigued, weak and non-motivated. Still has dysphagia with mid-sternal pain when eating dense foods. Has an episode every 2 weeks or so of choking that leads to vomiting. No appetite. No change in bowels. Has a movement every 3 days that starts out hard and then turns to diarrhea. Believed still related to his Xarelto. Has tried OTC laxatives with no change. [facility] ED 09.11.23 Fell off of a ladder and shattered his L elbow. OV 10.01.23 pt reports that he fell and shattered his elbow at the start of September and has been struggling with his bowel movements since because of all the medication he was on; feels his bowels are starting to regulate again. pt reports that his regular bowel pattern is constipation for 2-3 days and then will have diarrhea. Pt reports that he is continuing to have trouble swallowing; pt reports that he can swallow his food, just feels that anything fibrous gets stuck and he will end up regurgitating it back up; this happens once or twice a week. Pt continues with Pantoprazole and Ursodiol. ROS Const Constitutional: Positive for fatigue, headache(s) and weakness; No fever(s) or weight change ENT ENT: Positive for headache(s) and difficulty swallowing Cardio Cardiology: Positive for leg pain with exertion Gastro GI: Positive for bloating, change in bowel habits, constipation, diarrhea, heartburn, difficulty swallowing and excessive flatus; No abdominal pain, belching, change in stool character, coffee ground emesis, cramping, feeling full early, incontinent of stools, Vomiting blood/hematemesis, Blood in stool, loose stools, Black,tarry stools, nausea/dyspepsia, pain with swallowing, vomiting or other Musc Musculoskeletal: Positive for abnormal gait, joint pain, back pain, joint swelling, muscle cramps, muscle weakness, numbness, stiffness, tingling, Arthritis, restless legs, leg pain at night and leg pain with exertion Skin Skin: Positive for dry skin and itchy eyes; No yellowing of the eye Neuro Neurology: Positive for abnormal gait, weakness, headache(s), numbness, tingling, restless legs and tremor(s) Psych Psychiatric: No anxiety and No depression Endo Endocrine: Positive for fatigue; No weight change Aller/Imm Allergy/Immunologic: Positive for itchy eyes Fernandez/Lymp Hematologic/Lymphatic: Positive for easy bleeding and easy bruising Exam Const General: cooperative and comfortable Orientation: alert, awake and oriented x3 HENMT Head: normal to inspection Eyes Sclera: sclerae normal Resp Effort & Inspection: normal respiratory effort GI Inspection: normal to inspection Palpation: soft, no hepatosplenomegaly, no masses and tender in the epigastrum and in the RUQ Skin General: no rashes or lesions noted Neuro Gait: normal gait Psych Mood: congruent mood Assessment and Plan Assessment and Plan (1) Fatty liver: Status: Chronic Plan: Nonalcoholic fatty liver disease. He did get an ultrasound of the liver that showed hepatomegaly without splenomegaly and diffuse heterogenicity. He got a FibroScan that showed he has a F2 F3. He is losing weight which is good from a metabolic standpoint but he is losing weight because he cannot eat due to vigorous esophageal spasm. We will continue to monitor his inflammatory markers including ESR, CRP, LDH, INR and LFTs. And he will need a repeat FibroScan in 6 months. (2) Epigastric pain: Status: Acute Plan: Epigastric pain is likely secondary to esophageal spasm. He does have a hiatal hernia but I do not think that is contributing to his symptoms. He will undergo esophageal manometry and I will start him on nortriptyline 25 mg at night. I think this will help him because he has a lot of problems sleeping. (3) NAFLD (nonalcoholic fatty liver disease): Status: Chronic (4) Unintentional weight loss: Status: Acute Plan: His weight loss is secondary to decreased caloric intake. His CT scan did not show any masses or lesions. He is also experiencing some constipation that I think is secondary to decreased caloric intake. He is still 242 pounds with a BMI of 32 so I would not institute protein supplementation at this time. He will call back in approximately 7 to 10 days and we will set up esophageal manometry. 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 He will undergo next injection with Dilation of the esophagus I have examined the patient and the H&P has been reviewed. There are no clinical changes since date of exam.
--- NOTE | 2023-10-10 07:00 | EGD_PTH ---
PATIENT: HOANG GLEZ LOC: EN U#:[id number] AGE/SX: 63/M ROOM: RE10/10/[address]: Dr. Alfredo Keane DO : 1960 BED: DIS: 10/10/2023 SPEC #: [id number] RECD: 10/10/23 07:50 STATUS: BARBIE HARLEY #: [id number] LEVI: 10/10/23 07:[address]: Alfredo Keane DEPT: SURGICAL PATHOLOGY RECD BY: Sari Espinal ENTERED: 10/10/23 12:14 SP TYPE: EGD BIOPSY DEBI DR: Dr. Quang Kline DO Tissues: Esophagus, NOS Procedures: Special Stain Group I Surgery Specimen Level IV Alcian Blue/PAS (control) HEADER OPERATION: EGD, botox PRE-OP DIAGNOSIS: Fatty liver, epigastric pain, nonalcoholic fatty liver disease, unintentional weight loss TISSUE SUBMITTED: Distal esophagus biopsy MICROSCOPIC DIAGNOSIS Distal esophagus, biopsy: Gastroesophageal junction biopsy with mild chronic inflammation. No evidence of goblet cell metaplasia. See comment. / 10/11/2023 COMMENT Alcian blue/PAS stain with matched control supports the above diagnosis. MICROSCOPIC DESCRIPTION Slides are reviewed. GROSS DESCRIPTION Received in fixative is one container labeled with the patient's name and designated Distal esophagus biopsy. The specimen consists of multiple irregular fragments of light marin soft tissue that in aggregate measure 0.7 x 0.6 x 0.1 cm. The specimen is totally submitted in one cassette. AM/ 10/10/2023 TC:3 CPT:84105,50887
[2023-10-10] MEDS: 0.9% Normal Saline (Pres. free 10 ML Vial (07:31)
[2023-10-10] MEDS: Botulinum Toxin A 100 Units Vial IJ (07:31)
[2023-10-10] MEDS: 0.9% Saline Lock 10 ML Syringe IV (07:32)
[2023-10-10 07:42] VITALS: BP 127/81; BP 157/88; PULSE 84; RESP 16; TEMP 36.5; O2SAT 95
[2023-10-10 07:45] VITALS: BP 127/81; BP 157/88; PULSE 78; RESP 16; O2SAT 94
--- NOTE | 2023-10-10 07:47 | OP.CCLET_ITS ---
10/10/2023 Quang Kline Do Re : Upper GI endoscopy procedure for Leobardo Rowleyr Raisa This procedure was performed on September. My impressions and recommendations are as follows: Impressions : - Esophageal mucosal changes suggestive of Colon's esophagus. Biopsied. - Abnormal esophageal motility, consistent with esophageal spasm. Injected with botulinum toxin. - Brenden-en-Y gastrojejunostomy with gastrojejunal anastomosis characterized by healthy appearing mucosa. Recommendations : - Discharge patient to home. - Resume previous diet. - Continue present medications. - Await pathology results. - Repeat upper endoscopy in 4 months for surveillance. My findings are described in the full procedure note, which is enclosed. If I can be of further assistance, please feel free to contact me at . Sincerely, Alfredo Keane, 10/10/2023 7:46:59 AM This report has been signed electronically.
--- NOTE | 2023-10-10 07:47 | OP.EGD_ITS ---
Patient Name: Leobardo Andrea Procedure Date: 10/10/2023 7:18 AM Date of : 1960 Age: 63 Procedure: Upper GI endoscopy Indications: Dysphagia, Heartburn, Failure to respond to medical treatment Providers: Alfredo Keane DO Referring MD: Quang Kline Do Medicines: Monitored Anesthesia Care Patient Profile: This is a 63 year old male. Refer to note in patient chart for documentation of history and physical. Patient has symptoms of chronic chest pain and chronic dysphagia. Complications: No immediate complications. Procedure: Pre-Anesthesia Assessment: - Prior to the procedure, a History and Physical was performed, and patient medications and allergies were reviewed. The patient is competent. The risks and benefits of the procedure and the sedation options and risks were discussed with the patient. All questions were answered and informed consent was obtained. Patient identification and proposed procedure were verified by the physician. Mental Status Examination: normal. Prophylactic Antibiotics: The patient does not require prophylactic antibiotics. Prior Anticoagulants: The patient has taken no anticoagulant or antiplatelet agents. After reviewing the risks and benefits, the patient was deemed in satisfactory condition to undergo the procedure. The anesthesia plan was to use monitored anesthesia care (MAC). Immediately prior to administration of medications, the patient was re-assessed for adequacy to receive sedatives. The heart rate, respiratory rate, oxygen saturations, blood pressure, adequacy of pulmonary ventilation, and response to care were monitored throughout the procedure. The physical status of the patient was re-assessed after the procedure. After obtaining informed consent, the endoscope was passed under direct vision. Throughout the procedure, the patient's blood pressure, pulse, and oxygen saturations were monitored continuously. The Endoscope was introduced through the mouth, and advanced to the second part of duodenum. The upper GI endoscopy was accomplished without difficulty. The patient tolerated the procedure well. Scope In: 7:28:12 AM Scope Out: 7:37:30 AM Total Procedure Duration Time 0 hours 9 minutes 18 seconds Findings: There were esophageal mucosal changes suggestive of Colon's esophagus present in the lower third of the esophagus. The maximum longitudinal extent of these mucosal changes was 2 cm in length. Mucosa was biopsied with a cold forceps for histology in a targeted manner at intervals of 1 cm in the lower third of the esophagus. One specimen bottle was sent to pathology. Verification of patient identification for the specimen was done. Estimated blood loss was minimal. Abnormal motility was noted in the esophagus. The cricopharyngeus was abnormal. There are extra peristaltic waves in the esophageal body. The distal esophagus/lower esophageal sphincter is spastic, but gives up passage to the endoscope. Tertiary peristaltic waves are noted. Area was successfully injected with 100 units botulinum toxin. Evidence of a Brenden-en-Y gastrojejunostomy was found. The gastrojejunal anastomosis was characterized by healthy appearing mucosa. This was traversed. The mzkwc-wy-xwaxzyt limb was characterized by healthy appearing mucosa. The jejunojejunal anastomosis was characterized by healthy appearing mucosa. The qeplucdp-[id number]-tjocmhd limb was not examined as it could not be found. The excluded stomach was not examined as it could not be found. Impression: - Esophageal mucosal changes suggestive of Colon's esophagus. Biopsied. - Abnormal esophageal motility, consistent with esophageal spasm. Injected with botulinum toxin. - Brenden-en-Y gastrojejunostomy with gastrojejunal anastomosis characterized by healthy appearing mucosa. Recommendation: - Discharge patient to home. - Resume previous diet. - Continue present medications. - Await pathology results. - Repeat upper endoscopy in 4 months for surveillance. Procedure Code(s): --- Professional --- 94771, Esophagogastroduodenoscopy, flexible, transoral; with biopsy, single or multiple 08548, 59,51, Esophagogastroduodenoscopy, flexible, transoral; with directed submucosal injection(s), any substance CPT copyright 2021 [employer]. All rights reserved. The codes documented in this report are preliminary and upon braille coder review may be revised to meet current compliance requirements. Alfredo Keane DO 10/10/2023 7:46:59 AM This report has been signed electronically. Number of Addenda: 0 Note Initiated On: 10/10/2023 7:18 AM
[2023-10-10 07:50] VITALS: BP 118/85; BP 157/88; PULSE 80; RESP 16; O2SAT 94
[2023-10-10 07:53] VITALS: BP 119/88; BP 157/88; PULSE 77; RESP 16; TEMP 36.5; O2SAT 94
[2023-10-10 08:14] VITALS: BP 157/88
== END 2023-10-10 08:31 | disposition home or self-care (01) ==
LOC: EN 05:45 → AC 05:46
PROVIDERS: PCP Student in an Organized Health Care Education/Training Program; Referring Provider Student in an Organized Health Care Education/Training Program; Visit Provider Internal Medicine Gastroenterology
PROC: 0DJ08ZZ Inspection of Upper Intestinal Tract, Via Natural or Artificial Opening Endoscopic (ICD-10-PCS; CPT 43235; principal; 2023-10-10 06:55)
DX: K22.70 Barrett's esophagus without dysplasia (principal); K76.0 Fatty (change of) liver, not elsewhere classified; K22.4 Dyskinesia of esophagus; K20.90 Esophagitis, unspecified without bleeding; Z98.0 Intestinal bypass and anastomosis status
CPT/HCPCS: 43239; 43236; 88305; 88312; A4216; J0585; J2405

== ENCOUNTER 2023-12-11 05:11 | Day surgery (SDC) | payer OTHER, MEDICARE, SELFPAY ==
[2023-12-11] VITALS (9 sets, daily range): BP systolic 108–149; BP diastolic 66–79; PULSE 77–84; RESP 16–18; TEMP 36.7–37.1; O2SAT 93–98; BMI 34.7
[2023-12-11] MEDS: Lactated Ringers 1,000 ML 15 ML IV (05:40)
--- NOTE | 2023-12-11 06:26 | PRE.ANES_ITS ---
ASA Classification* ASA Classification ASA Classification: 3 Assessment & Plan Anesthesia* Anesthesia Assessment Anesthesia Assessment: Discussed sedation and/or anesthesia options, risks, benefits, and alternatives with patient/parents/legal guardian/POA. Questions invited. The patient/parents/legal guardian/POA seems to understand and agrees to proceed with anesthesia plan. Reviewed the physical assessment, medical history, allergy history and patient home medications list prior to surgery/procedure/anesthetic and documented any changes. Performed airway and anesthesia risk assessments. Anesthesia Type Anesthesia Type: MAC History Source History Obtained from:: Patient and Chart Anesthesia Focused Assessment* Temperature: 98.5 F Pulse Rate: 80 Blood Pressure: 149/79 Respiratory Rate: 16 Pulse Ox: 98 Oxygen Delivery Method: Room Air Airway Assessment Mouth opens: >3 cm Mallampati Score: I Teeth Condition: Caps/Crowns (Left top molars is a crown. It is tight) Neck Range of motion (ROM): Full ROM Focused Labs Anesthesia Preop lab: CBC WBC 6.5 K/mm3 (4.4-11.0) 09/11/23 13:30 RBC 4.59 M/mm3 (4.6-6.2) L 09/11/23 13:30 Hgb 14.2 g/dL (13.0-16.5) 09/11/23 13:30 Hct 43.5 % (40-54) 09/11/23 13:30 Plt Count 297 K/mm3 (150-450) 09/11/23 13:30 CHEMISTRY Potassium 3.7 mmol/L (3.5-5.1) 09/11/23 13:30 Sodium 139 mmol/L (136-145) 09/11/23 13:30 BUN 17 mg/dL (7-18) 09/11/23 13:30 Creatinine 0.81 mg/dL (0.70-1.30) 09/11/23 13:30 Glucose 111 mg/dL (74-106) H 09/11/23 13:30 COAG PT 13.4 SECONDS (11.7-14.9) 08/21/22 15:45 Pre-Assessment Diagnosis/Proposed Procedure Planned Operative Procedure(s): COLONOSCOPY Anesthesia History Anesthesia History - business development officer: Anesthesia History - business development officer Hx Hospitalization Yes: broken elbow 09/202312/09/23 08:47 Any Problems With Anesthesia No 12/09/23 08:47 Cholinesterase deficiency No 12/09/23 08:47 You/Your Family Experience No 12/09/23 08:47 fever (hyperthermia) with Relationship Recent Exposure to Contagious No 12/11/23 05:40 Disease Does patient have nerve No 12/09/23 08:47 stimulator Patient instructed to have device shut off --Does patient have Pacemaker No 12/11/23 05:40 or ICD? When Was Last Pacemaker Check QUESTION #4 FULL TEXT: You/Your Family Experience fever (hyperthermia) with Anesthesia Last Oral Intake Last Oral intake: Last Oral Intake NPO since 02:30 12/11/23 05:40 Meds taken in AM with sips of No 12/11/23 05:40 water? Meds patient instructed to take am of surgery Any additional information?: Yes NPO since: 02: (Prep finished at 2:30 AM.) PONV PONV - business development officer: PONV - business development officer Female No 12/09/23 08:47 HX of Motion Sickness No 12/09/23 08:47 HX of N/V After Surgery No 12/09/23 08:47 Non-Smoker Yes 12/09/23 08:47 Duration of Surgery greater No 12/09/23 08:47 than 60 minutes Number of Risk Factors 1 12/09/23 08:47 PONV Score Low Risk 12/09/23 08:47 Height & Weight Height & Weight: Anesthesia: Height & Weight Height 6 ft 12/11/23 05:40 Weight: 116 kg 12/11/23 05:40 Body Mass Index (BMI) 34.7 12/11/23 05:40 Respiratory Assessment Respiratory Assessment - business development officer: Respiratory Tract Infection Hx - business development officer Hx Respiratory Tract Infection No 12/09/23 08:47 STOP Sleep Apnea STOP Sleep Apnea - business development officer: STOP Sleep Apnea - business development officer Hx Hypertension No 12/09/23 08:47 Hx Sleep Apnea No 12/09/23 08:47 CPAP BIPAP Do you snore loudly (louder No 12/09/23 08:47 than talking or can be heard Do you often feel tired/ No 12/09/23 08:47 fatigued/ sleepy during daytime? Has anyone observed you stop No 12/09/23 08:47 breathing during sleep? STOP Results Negative 12/09/23 08:47 QUESTION #5 FULL TEXT : Do you snore loudly (louder than talking or can be heard through closed doors)? Tobacco Use History Tobacco Use History - business development officer: Tobacco Use History - business development officer Tobacco Use Smoking Status Former smoker 12/09/23 08:47 Hx Tobacco Use No 12/09/23 08:47 Years Smoking Packs Smoked per Day Smoking Cessation Date was No - quit smoking greater 12/09/23 08:47 within the last 15 years than 15 years ago Hx Smoking Cessation Date 05/13/83 12/09/23 08:47 Hx Smoking Cessation Counseling Hematologic Medial History Hematologic Hx - business development officer: Hematologic Medical Hx - engineering documentation specialist Hx of Blood Transfusion Yes 12/09/23 08:47 Hx of Transfusion in last 3 No 12/09/23 08:47 Months Date of Last Transfusion (if within last 3 months) Ever experience any problems No 12/09/23 08:47 with transfusion(s)? Specify any problems Hx of Preganancy in last 3 N/A 12/09/23 08:47 Months Nurse Filling Out Transfusion VCHRISTIN 12/09/23 08:47 & Questions: Date: 12/09/23 12/09/23 08:47 Time: 08:48 12/09/23 08:47 Patient unable to answer at this time (ie. confused, unrespo /Reproduction History /Reproductive History - business development officer: /Reproductive Hx- business development officer Hx Now No 12/09/23 08:47 Gestational Age (in weeks): EDC: Hx Hx Para Hx Section SAB No 12/09/23 08:47 Active Medications Active Medications: Current Medications Generic Name Dose Route Start Last Admin Trade Name Freq PRN Reason Stop Dose Admin Lactated Ringer's 1,000 mls @ 15 mls/hr 12/11/23 05:30 12/11/23 05:40 IV 15 mls/hr .Q48H KAZ Administration PFSH Medical History Elbow fracture (09/12/23) Wears glasses Arthritis Excessive bleeding Easy bruising Luke filter in place DVT (deep venous thrombosis) Back pain Migraine headache Former smoker Leg cramps History of edema HLD (hyperlipidemia) IBS (irritable bowel syndrome) Depression Abnormal iron saturation Chronic deep vein thrombosis Muscle cramping NAFLD (nonalcoholic fatty liver disease) Fatigue Bone pain Elevated PSA Hyperbilirubinemia Other disorders of bilirubin metabolism Home Medications ?Medication ?Instructions ?Recorded ?Last Taken ?Type Ropinirole Hcl [Requip] 1 mg PO TID PRN PRN Sleep 02/02/16 10/09/23 History cyclobenzaprine 10 mg tablet See Rx Instructions PO BID 02/02/16 10/09/23 H istory gabapentin 800 mg tablet 800 mg PO QHS 02/02/16 10/09/23 History celecoxib 200 mg capsule 200 mg PO DAILY 07/12/22 10/09/23 History rivaroxaban 20 mg tablet 20 mg PO DAILY 07/12/22 12/08/23 History prenat.vits,kathrine,[id number] 1 tab PO DAILY 08/21/22 10/09/23 History acetaminophen 500 mg capsule 1,000 mg PO DAILY PRN pain 10/23/22 10/09/23 History calcium carbonate 500 mg-vitamin 2 tab PO DAILY 10/23/22 10/09/23 History D3 3.125 mcg (125 unit) tablet misoprostol 100 mcg tablet 100 mcg PO BID 3 months #180 tabs 04/02/23 10/09/23 Rx nortriptyline 25 mg capsule 25 mg PO QHS 90 days #90 caps 04/02/23 10/09/23 Rx ursodiol 250 mg tablet 250 mg PO BID #180 tabs 09/17/23 10/09/23 Rx gabapentin 400 mg capsule 400 mg PO DAILY 10/03/23 10/09/23 History pantoprazole 40 mg tablet,delayed 40 mg PO BID #90 tabs 10/14/23 Unknown Rx release Allergy/AdvReac Type Severity Reaction Status Date / Time latex Allergy Hives Verified 12/11/23 05:48 hydrocodone (From Vicodin) AdvReac Hives Verified 12/11/23 05:48 Family History Father Abdominal aortic aneurysm Arrhythmia Brother CAD (coronary artery disease) Mother COPD (chronic obstructive pulmonary disease) Surgical History History of esophagogastroduodenoscopy (EGD) History of open reduction and internal fixation (ORIF) procedure (09/12/23) History of Brenden-en-Y gastric bypass Social History Smoking Status: Former smoker quit date: 02/02/16 alcohol intake: current alcohol intake frequency: a few times a month Review of Systems (Anesthesia) ROS Narrative System reviewed and no additional complaints, except as documented.
--- NOTE | 2023-12-11 06:30 | COLBX_PTH ---
PATIENT: HOANG GLEZ LOC: EN U#:[id number] AGE/SX: 63/M ROOM: RE12/11/[address]: Dr. Alfredo Keane DO : 1960 BED: DIS: 12/11/2023 SPEC #: [id number] RECD: 12/11/23 10:42 STATUS: BARBIE HARLEY #: [id number] LEVI: 12/11/23 06:[address]: Alfredo Keane DEPT: SURGICAL PATHOLOGY RECD BY: Sari Espinal ENTERED: 12/11/23 11:45 SP TYPE: COLON BX DEBI DR: Dr. Quang Kline DO Tissues: A - COLON BIOPSY B - Sigmoid colon biopsy Procedures: Surgery Specimen Level IV HEADER OPERATION: Colonoscopy, biopsy, spot marking PRE-OP DIAGNOSIS: NAFLD, dysphagia TISSUE SUBMITTED: A- Hepatic flexure polyp biopsy, B- Sigmoid ulcer biopsy MICROSCOPIC DIAGNOSIS A. Hepatic flexure polyp, biopsy: Tubular adenoma. B. Sigmoid ulcer, biopsy: Fragments of colonic mucosa with ulceration, acute and chronic inflammation, granulation tissue reaction and focal changes consistent with ischemic colitis. SHANICE/ 12/12/2023 MICROSCOPIC DESCRIPTION Slides are reviewed. GROSS DESCRIPTION A. Received in fixative is one container labeled with the patient's name and designated Hepatic flexure polyp. The specimen consists of one irregular fragment of light marin soft tissue that measures 0.6 x 0.5 x 0.1 cm. The specimen is totally submitted in one cassette. B. Received in fixative is one container labeled with the patient's name and designated Sigmoid ulcer biopsy. The specimen consists of multiple irregular fragments of light marin soft tissue that in aggregate measure 1.0 x 0.5 x 0.1 cm. The specimen is totally submitted in one cassette. ALMA DELIA/ 12/11/2023 TC:1 CPT:26935f7
--- NOTE | 2023-12-11 06:38 | HP.PCM_ITS ---
History and Physical Date of Admission: 12/11/23 HOANG GLEZ, is a 63 M who presents to the office today for follow up. PCP OV 06.28.22 with new diagnosis NAFLD noting pertinent history of obesity s/p gastric bypass 2005, IBS, anemia, DVT.?Biochemical?CBC, iron, ferritin, Vit D25, lipids, PTH without pertinent abnormality?T.Bili H1.5, AST 28-ALT 47-AP H148 FIB4 0.89, TIBC L243, folate H35.86, Vit B12 >2000?[facility]coarse echotexture of the liver.? *BGI established 08.21.22 with history as above. Feeling generally unwell with weakness/fatigue since and minor dysphagia. Heartburn has been a problem since Brenden-en-Y in 2005; constipation since starting Xarelto two months prior.?Biochemical?CBC, ESR, haptoglobin, A1c, CMP, ferritin, ammonia, LDH, CRP, ceruloplasmin, PRASHANT, AFP, copper, ANCA, MULUGETA comp, AMA, ASM, hepatitis, HIV without pertinent abnormality.?AST 25-ALT 38-AP H137?US and elastography 08.30.22?hepatic measurement 16.6cm with fatty infiltration stiffness 8kPa; right renal cyst?Start ursodiol? OV 10.15.22 noting unintentional weight loss of 30lbs.?Ursodiol held.?Biochemical?CBC, ESR, CMP, CRP, ferritin, lipase, Iron, TIBC without pertinent abnormality?T.bili H1.4, AST H38-ALT 37-AP H147?CT abd/pel 10.23.22?hepatic steatosis; right renal cyst; small hiatal hernia; s/p gastric bypass.?EGD 10.25.22?esophagus significantly tortuous; irregular Zline 40cm; medium hiatal hernia; Brenden-en-Y with erythema, edema and erosion at anastomosis, chronic inflammation.? Pt reports still feeling fatigued, weak and non-motivated. Still has dysphagia with mid-sternal pain when eating dense foods. Has an episode every 2 weeks or so of choking that leads to vomiting. No appetite. No change in bowels. Has a movement every 3 days that starts out hard and then turns to diarrhea. Believed still related to his Xarelto. Has tried OTC laxatives with no change. [facility] ED 09.11.23 Fell off of a ladder and shattered his L elbow. OV 10.01.23 pt reports that he fell and shattered his elbow at the start of September and has been struggling with his bowel movements since because of all the medication he was on; feels his bowels are starting to regulate again. pt reports that his regular bowel pattern is constipation for 2-3 days and then will have diarrhea. Pt reports that he is continuing to have trouble swallowing; pt reports that he can swallow his food, just feels that anything fibrous gets stuck and he will end up regurgitating it back up; this happens once or twice a week. Pt continues with Pantoprazole and Ursodiol. ROS Const Constitutional: Positive for fatigue, headache(s) and weakness; No fever(s) or weight change ENT ENT: Positive for headache(s) and difficulty swallowing Cardio Cardiology: Positive for leg pain with exertion Gastro GI: Positive for bloating, change in bowel habits, constipation, diarrhea, heartburn, difficulty swallowing and excessive flatus; No abdominal pain, belching, change in stool character, coffee ground emesis, cramping, feeling full early, incontinent of stools, Vomiting blood/hematemesis, Blood in stool, loose stools, Black,tarry stools, nausea/dyspepsia, pain with swallowing, vomiting or other Musc Musculoskeletal: Positive for abnormal gait, joint pain, back pain, joint swelling, muscle cramps, muscle weakness, numbness, stiffness, tingling, Arthritis, restless legs, leg pain at night and leg pain with exertion Skin Skin: Positive for dry skin and itchy eyes; No yellowing of the eye Neuro Neurology: Positive for abnormal gait, weakness, headache(s), numbness, tingling, restless legs and tremor(s) Psych Psychiatric: No anxiety and No depression Endo Endocrine: Positive for fatigue; No weight change Aller/Imm Allergy/Immunologic: Positive for itchy eyes Fernandez/Lymp Hematologic/Lymphatic: Positive for easy bleeding and easy bruising Exam Const General: cooperative and comfortable Orientation: alert, awake and oriented x3 HENMT Head: normal to inspection Eyes Sclera: sclerae normal Resp Effort & Inspection: normal respiratory effort GI Inspection: normal to inspection Palpation: soft, no hepatosplenomegaly, no masses and tender in the epigastrum and in the RUQ Skin General: no rashes or lesions noted Neuro Gait: normal gait Psych Mood: congruent mood Assessment and Plan Assessment and Plan (1) Fatty liver: Status: Chronic Plan: Nonalcoholic fatty liver disease. He did get an ultrasound of the liver that showed hepatomegaly without splenomegaly and diffuse heterogenicity. He got a FibroScan that showed he has a F2 F3. He is losing weight which is good from a metabolic standpoint but he is losing weight because he cannot eat due to vigorous esophageal spasm. We will continue to monitor his inflammatory markers including ESR, CRP, LDH, INR and LFTs. And he will need a repeat FibroScan in 6 months. (2) Epigastric pain: Status: Acute Plan: Epigastric pain is likely secondary to esophageal spasm. He does have a hiatal hernia but I do not think that is contributing to his symptoms. He will undergo esophageal manometry and I will start him on nortriptyline 25 mg at night. I think this will help him because he has a lot of problems sleeping. (3) NAFLD (nonalcoholic fatty liver disease): Status: Chronic (4) Unintentional weight loss: Status: Acute Plan: His weight loss is secondary to decreased caloric intake. His CT scan did not show any masses or lesions. He is also experiencing some constipation that I think is secondary to decreased caloric intake. He is still 242 pounds with a BMI of 32 so I would not institute protein supplementation at this time. He will call back in approximately 7 to 10 days and we will set up esophageal manometry. 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 He will undergo next injection with Dilation of the esophagus I have examined the patient and the H&P has been reviewed. There are no clinical changes since date of exam.
--- NOTE | 2023-12-11 07:09 | OP.CCLET_ITS ---
12/11/2023 Quang Kline Do Re : Colonoscopy procedure for Leobardo Andrea Dear Raisa This procedure was performed on Monday, December 11, 2023. My impressions and recommendations are as follows: Impressions : - One 3 mm polyp at the hepatic flexure, removed with a jumbo cold forceps. Resected and retrieved. - Diverticulosis in the recto-sigmoid colon and in the sigmoid colon. - A single (solitary) ulcer in the sigmoid colon. Biopsied. Tattooed. Recommendations : - Discharge patient to home. - Resume previous diet. - Continue present medications. - Await pathology results. - Repeat colonoscopy in 5 years for surveillance. My findings are described in the full procedure note, which is enclosed. If I can be of further assistance, please feel free to contact me at . Sincerely, Alfredo Keane, 12/11/2023 7:07:43 AM This report has been signed electronically.
--- NOTE | 2023-12-11 07:09 | OP.COLON_ITS ---
Patient Name: Leobardo Andrea Procedure Date: 12/11/2023 6:24 AM Date of : 1960 Age: 63 Procedure: Colonoscopy Indications: Screening for colorectal malignant neoplasm due to positive Cologuard test Providers: Alfredo Keane DO Medicines: Monitored Anesthesia Care Patient Profile: This is a 63 year old male. Refer to note in patient chart for documentation of history and physical. Last Colonoscopy: date unknown. Unable to locate last colonoscopy report. Complications: No immediate complications. Procedure: Pre-Anesthesia Assessment: - Prior to the procedure, a History and Physical was performed, and patient medications and allergies were reviewed. The risks and benefits of the procedure and the sedation options and risks were discussed with the patient. All questions were answered and informed consent was obtained. Patient identification and proposed procedure were verified by the physician. Mental Status Examination: normal. Respiratory Examination: clear to auscultation. CV Examination: normal. Prophylactic Antibiotics: The patient does not require prophylactic antibiotics. Prior Anticoagulants: The patient has taken no anticoagulant or antiplatelet agents. ASA Grade Assessment: II - A patient with mild systemic disease. After reviewing the risks and benefits, the patient was deemed in satisfactory condition to undergo the procedure. The anesthesia plan was to use monitored anesthesia care (MAC). Immediately prior to administration of medications, the patient was re-assessed for adequacy to receive sedatives. The heart rate, respiratory rate, oxygen saturations, blood pressure, adequacy of pulmonary ventilation, and response to care were monitored throughout the procedure. The physical status of the patient was re-assessed after the procedure. After I obtained informed consent, the scope was passed under direct vision. Throughout the procedure, the patient's blood pressure, pulse, and oxygen saturations were monitored continuously. The Colonoscope was introduced through the anus and advanced to the cecum, identified by appendiceal orifice and ileocecal valve. The colonoscopy was performed without difficulty. The patient tolerated the procedure well. The quality of the bowel preparation was adequate. The ileocecal valve, appendiceal orifice, and rectum were photographed. Scope In: 6:43:57 AM Scope Withdrawal Time 0 hours 13 minutes 59 seconds Scope Out: 7:03:20 AM Total Procedure Duration Time 0 hours 19 minutes 23 seconds Findings: The perianal and digital rectal examinations were normal. A 3 mm polyp was found in the hepatic flexure. The polyp was sessile. The polyp was removed with a jumbo cold forceps. Resection and retrieval were complete. Verification of patient identification for the specimen was done. Estimated blood loss was minimal. Multiple small-mouthed diverticula were found in the recto-sigmoid colon and sigmoid colon. A single (solitary) ten mm ulcer was found in the sigmoid colon. No bleeding was present. No stigmata of recent bleeding were seen. Biopsies were taken with a cold forceps for histology. Verification of patient identification for the specimen was done. Area was tattooed with an injection of 1 mL of Veena ink. Impression: - One 3 mm polyp at the hepatic flexure, removed with a jumbo cold forceps. Resected and retrieved. - Diverticulosis in the recto-sigmoid colon and in the sigmoid colon. - A single (solitary) ulcer in the sigmoid colon. Biopsied. Tattooed. Recommendation: - Discharge patient to home. - Resume previous diet. - Continue present medications. - Await pathology results. - Repeat colonoscopy in 5 years for surveillance. Procedure Code(s): --- Professional --- 20425, Colonoscopy, flexible; with biopsy, single or multiple 09571, Colonoscopy, flexible; with directed submucosal injection(s), any substance CPT copyright 2021 [employer]. All rights reserved. The codes documented in this report are preliminary and upon toppiece cutter review may be revised to meet current compliance requirements. Alfredo Keane DO 12/11/2023 7:07:43 AM This report has been signed electronically. Number of Addenda: 0 Note Initiated On: 12/11/2023 6:24 AM
--- NOTE | 2023-12-11 07:10 | PCM.POST.ANE ---
Anesthesia: Postop Eval I Current Vital Signs Temperature: 98.1 F Pulse Rate: 84 Blood Pressure: 108/71 Respiratory Rate: 16 Pulse Ox: 97 Oxygen Delivery Method: Room Air Assessment Airway patent: Yes Spontaneous unlabored respirations: Yes Mental status: Asleep nausea: No Vomiting: No Anesthesia Complication: No Fluid Hydration Crystalloid volume administer (ml): 600 Total IV fluid infused: 600 Progress Note Anesthesia document: Postop Eval 1 completed: Yes
--- NOTE | 2023-12-11 08:34 | PCM.POSTANE2 ---
Anesthesia Postop Eval I Sum Postop Eval Completion status Anesthesia document: Postop Eval 1 completed: Yes Anesthesia Postop Eval I Summary Anesthesia Postop Eval I Summary: Anesthesia Postop Eval I: Assessment Summary Airway patent Yes 12/11/23 07:11 [email or web address] Spontaneous unlabored Yes 12/11/23 07:11 [email or web address] respirations Mental status Asleep 12/11/23 07:11 [email or web address] nausea No 12/11/23 07:11 [email or web address] Vomiting No 12/11/23 07:11 [email or web address] Anesthesia Postop Eval I: Fluid Summary Crystalloid volume administer 600 12/11/23 07:11 [email or web address] (ml) Colloids volume administered ( ml) Blood Product volume administered (ml) Total IV fluid infused 600 12/11/23 07:11 [email or web address] Anesthesia Postop Eval I: Summary Notes Anesthesia Complication No 12/11/23 07:11 [email or web address] Anesthesia Complication Comment: Post-operative progress note Anesthesia: Postop Eval II Evaluation Mental status: Awake Pain Level: 0 nausea: No Vomiting: No
== END 2023-12-11 07:51 | disposition home or self-care (01) ==
LOC: EN 05:13 → AC 05:15
PROVIDERS: PCP Student in an Organized Health Care Education/Training Program; Referring Provider Student in an Organized Health Care Education/Training Program; Visit Provider Internal Medicine Gastroenterology
PROC: 0DJD8ZZ Inspection of Lower Intestinal Tract, Via Natural or Artificial Opening Endoscopic (ICD-10-PCS; CPT 45378; principal; 2023-12-11 06:25)
DX: Z12.11 Encounter for screening for malignant neoplasm of colon (principal); K57.30 Diverticulosis of large intestine without perforation or abscess without bleeding; K55.9 Vascular disorder of intestine, unspecified; D12.3 Benign neoplasm of transverse colon; K76.0 Fatty (change of) liver, not elsewhere classified; R63.4 Abnormal weight loss; Z79.01 Long term (current) use of anticoagulants; Z79.899 Other long term (current) drug therapy; Z68.34 Body mass index [BMI] 34.0-34.9, adult
CPT/HCPCS: 45380; 45381; 88305; J7120; A4648; J2405